=== PATIENT | male | born 1985 | race Two or more races ===

== ENCOUNTER 2016-07-29 13:12 | Emergency (ER) | payer OTHER ==
[~2016-07-29] VITALS: Ht 175.3 cm; Wt 70.4 kg
[2016-07-29 13:30] VITALS: Ht 175.3 cm; Wt 70.4 kg
--- NOTE | 2016-07-29 14:46 | EN ---
Date/Time of Note Date/Time of Note DATE: 07/29/16 TIME: 14:43 ER Progress Note This is a 31-year-old male presenting to the ER and seen in E for left upper leg pain 1 week. Patient states he was in a martial arts class and has sustained multiple hits and kicks to his upper leg including his knee. Patient states soon after he had a large amount of swelling and pain with medial and posterior ecchymosis. Patient is concerned and is requesting an x-ray and/or MRI. Patient walking with limp. Visible swelling on rapid medical examination. JIMI CHAUDHRY NP Jul 29, 2016 14:46
[2016-07-29] MEDS ORDERED: KETOROLAC 30 MG INJ IM STA (15:15)
[2016-07-29] MEDS ORDERED: IBUP-1542 PO (15:28)
--- NOTE | 2016-07-29 15:36 | ERD ---
ER Documentation Chief Complaint Date/Time DATE: 07/29/16 TIME: 15:30 Chief Complaint pt bib self with c/o left leg pain, was kicked during martial arts workout HPI This is a 31-year-old male presenting to the emergency room complaining of left knee pain, left lower thigh pain status post and kicked in the left lateral lower extremity during martial arts workout last Sunday. Patient states the pain is moderate in severity. He is complaining of swelling and pain into the left knee as well. Patient states that when he walks the pain radiates upward. Patient states that he has taken Tylenol in the afternoon without any relief. Patient states that he is able to walk with a limp and it is painful for bearing weight ROS All systems reviewed and are negative except as per history of present illness. Medications Home Meds Active Scripts Ibuprofen* (Ibuprofen*) 600 Mg Tablet, 600 MG PO Q6H Y for PAIN, #30 TAB Prov:TERE ROME PA-C 07/29/16 Allergies Allergies: Coded Allergies: tetanus and diphtheria toxoids (Unverified Allergy, Unknown, 07/29/16) PMhx/Soc Hx Respiratory Disorders: Yes (ASTHMA; SEASONAL ALLERGY) Hx Alcohol Use: Yes (OCCASION) Hx Substance Use: No Hx Tobacco Use: Yes Smoking Status: Current some day smoker Physical Exam Vitals Vital Signs Date Time Temp Pulse Resp B/P Pulse Ox O2 Delivery O2 Flow Rate FiO2 07/29/16 13:30 97.3 62 18 135/89 95 Physical Exam General: WD/WN, in no apparent distress, non-toxic appearing HENT: NC/AT Eyes: Conjunctiva normal Neck: Supple Pulm: Clear to auscultation, normal labored breathing; no wheezing/rales/ rhonchi heard CV: Good capillary refill GI: Non-distended, no guarding Back: No masses Ext: Left anterior knee as moderate swelling, tenderness to palpation over the left inferior to patella lateral knee, tenderness to palpation in the lateral quadricep region, +2 popliteal pulse, restricted range of motion due to pain and swelling Neuro: Moves on all fours Skin: intact Psych: Normal mood Results 24 hrs Current Medications Medications (Trade) Dose Ordered Sig/Lu Route PRN Reason Start Time Stop Time Status Last Admin Dose Admin Ketorolac Tromethamine (Toradol) 30 mg ONCE STAT IM 07/29/16 15:15 07/29/16 15:17 DC 07/29/16 15:28 Procedures/MDM This is a 31-year-old male presenting to the emergency room complaining of left knee pain, left lower thigh pain status post and kicked in the left lateral lower extremity during martial arts workout last Sunday. Patient had moderate swelling of the whole knee with tenderness over the lateral aspect of the left knee which can be due to a contusion, tendon, ligamentous or meniscal injury. It is unlikely that patient has any fracture or dislocation. An x-ray of the left knee was done did not show any evidence of fracture dislocation. There was evidence of a small joint effusion. Patient also had tenderness in the lateral quadriceps region, patient likely has tendon injury vs muscle tear. XR of the femur was done and radiologist stated: XR femur: 1. No radiographic evidence of acute osseous abnormality. 2. Slight bony irregularity at the femoral head neck junction could reflect femoral acetabular impingement, to be correlated clinically. I have discussed this case with one of my supervising physicians who stated that this is likely a chronic issue which will need a follow-up with his primary care physician for an orthopedic referral. We have decided to do a CT to provide the patient with more information to give to his orthopedic but it will not change our management today. CT of the pelvis was done and radiologist stated: 1. There are bilateral nondisplaced fractures of the L5 pars interarticularis with mild disk space narrowing at L5-S1. 2. Broad 5 mm disk protrusion at L5-S1. 3. 5.3 mm AP dorsal disk osteophyte complex with disk space narrowing at L4-5. 4. The femurs and acetabular are unremarkable. I have discussed this case with Dr. Kearney who suggested this is likely a congenital issue that needs to follow-up with orthopedist.Patient was non- tender on his spine midline I discussed with patient to follow-up with a primary care physician tomorrow to get a referral to see orthopedist for further evaluation management. Patient was placed in a knee immobilizer and given crutches. Patient is neurovascular intact. Patient is suitable for outpatient care. Discussed return to the ER for any worsening signs or symptoms. Patient understands and agrees with this plan Departure Diagnosis: Primary Impression: Knee pain, left Chronicity: acute Qualified Code: M25.562 - Acute pain of left knee Additional Impression: Contusion Encounter type: initial encounter Contusion area: lower leg Laterality: left Qualified Code: S80.12XA - Contusion of left lower leg, initial encounter Condition: Stable Patient Instructions: Reducing Knee Pain and Swelling, Contusion, Lower Extremity, Knee Pain, Uncertain Cause, Knee Immobilizer, Knee Sprain Referrals: [facility] YOU HAVE RECEIVED A MEDICAL SCREENING EXAM AND THE RESULTS INDICATE THAT YOU DO NOT HAVE A CONDITION THAT REQUIRES URGENT TREATMENT IN THE EMERGENCY DEPARTMENT. FURTHER EVALUATION AND TREATMENT OF YOUR CONDITION CAN WAIT UNTIL YOU ARE SEEN IN YOUR DOCTORS OFFICE WITHIN THE NEXT 1-2 DAYS. IT IS YOUR RESPONSIBILITY TO MAKE AN APPOINTMENT FOR FOLOW-UP CARE. IF YOU HAVE A PRIMARY DOCTOR --you should call your primary doctor and schedule an appointment IF YOU DO NOT HAVE A PRIMARY DOCTOR YOU CAN CALL OUR PHYSICIAN REFERRAL HOTLINE AT IF YOU CAN NOT AFFORD TO SEE A PHYSICIAN YOU CAN CHOSE FROM THE FOLLOWING [facility] [address] [facility] [address] [facility] [address] [facility] [address] [facility] [address] [facility] [address] [facility]. [address] [facility]ENT [facility]SPECIALTIES Additional Instructions: FOLLOW UP WITH YOUR PRIMARY CARE PHYSICIAN TOMORROW.Return to this facility if you are not improving as expected. Take all medicines as directed. Return to this facility if you are not improving as expected. TERE ROME PA-C Jul 29, 2016 15:36
--- NOTE | 2016-07-29 15:57 | RADRPT ---
PROCEDURE: XR Knee. CLINICAL INDICATION: Left knee pain TECHNIQUE: 3 images of the left knee are available for review. COMPARISON: Radiographs of the left femur performed same day FINDINGS: There is no acute fracture. Alignment is normal. Joint spaces are preserved. A small joint effusion is noted. IMPRESSION: 1. No radiographic evidence of acute osseous abnormality. 2. Small knee joint effusion. RPTAT: UU .Jass Elizabeth MD, MD Date Time Electronically viewed and signed by .Jass Elizabeth MD, MD on 07/29/2016 15:57 .K/
--- NOTE | 2016-07-29 16:04 | RADRPT ---
PROCEDURE: XR left femur CLINICAL INDICATION: Left lower extremity pain TECHNIQUE: 3 images of the left femur COMPARISON: Radiographs of the left knee same day FINDINGS: There is no evidence of acute fracture. There is slight bone proliferation at the femoral head neck junction, could query femoral acetabular impingement, to be correlated clinically. The soft tissue s are grossly unremarkable. IMPRESSION: 1. No radiographic evidence of acute osseous abnormality. 2. Slight bony irregularity at the femoral head neck junction could reflect femoral acetabular impi ngement, to be correlated clinically. RPTAT: UU .Jass Elizabeth MD, MD Date Time Electronically viewed and signed by .Jass Elizabeth MD, MD on 07/29/2016 16:04 .K/
--- NOTE | 2016-07-29 17:20 | RADRPT ---
PROCEDURE: CT scan of the pelvis with IV contrast. CLINICAL INDICATION: Left lower extremity pain. TECHNIQUE: Thin section axial, coronal and sagittal images were performed through the pelvis witho ut contrast. Radiation Dose: CTDI: 6.18 and DLP: 222.06. One or more of the following dose reduction techniques were used: - Automated exposure control. - Adjustment of the mA and/or kV according to patient size. Use of iterative reconstruction technique. COMPARISON: Left femur to 09/2016. FINDINGS: The soft tissues and bony elements are unremarkable. The femoral heads are anatomically aligned wit hin the acetabula appear intact. The sacrum and SI joints are normal. The innominate bone is intac t. There is mild disk space narrowing at L4-5. There are bilateral nondisplaced fractures of the L5 pars interarticularis without evidence of spond ylolisthesis. There is disk space narrowing L5-S1. There is a 5.6 mm central disk protrusion at L5-S1. No inguinal hernia or enlarged inguinal lymph node is identified. The urinary bladder, seminal vesi cles and prostate gland are normal. The visible small bowel loops are normal. The colon is unremar kable as visualized. IMPRESSION: 1. There are bilateral nondisplaced fractures of the L5 pars interarticularis with mild disk space narrowing at L5-S1. 2. Broad 5 mm disk protrusion at L5-S1. 3. 5.3 mm AP dorsal disk osteophyte complex with disk space narrowing at L4-5. 4. The femurs and acetabular are unremarkable. RPTAT:AAJJ Physician Mario Date Time Electronically viewed and signed by Physician Mario on 07/29/2016 17:19 MARCELO/
[2016-07-29 18:13] VITALS: BP 134/74; PULSE 84; RESP 19
== END 2016-07-29 18:16 | disposition home or self-care (01) ==
LOC: FTE 13:12
DX: S80.12XA Contusion of left lower leg, initial encounter (principal); F17.210 Nicotine dependence, cigarettes, uncomplicated; J45.909 Unspecified asthma, uncomplicated; W22.8XXA Striking against or struck by other objects, initial encounter; Y92.89 Other specified places as the place of occurrence of the external cause
CPT/HCPCS: 29505; 73550; 73562; 73700; 96372; J1885; Z7502